=== PATIENT | female | born 1990 | race American Indian/Alaskan Native ===

== ENCOUNTER 2017-12-16 02:34 | Emergency (ER) | payer SELFPAY ==
[2017-12-16 02:45] VITALS: BP 98/78
== END 2017-12-16 10:26 | disposition left against medical advice (07) ==
LOC: ED 02:34
DX: R42 Dizziness and giddiness (principal); Z53.21 Procedure and treatment not carried out due to patient leaving prior to being seen by health care provider
CPT/HCPCS: 87116; 87430

== ENCOUNTER 2017-12-16 09:21 | Emergency (ER) | payer SELFPAY ==
[2017-12-16] MEDS ORDERED: MOTRIN PO ONE (09:57)
--- NOTE | 2017-12-16 10:06 | Emergency Department Report ---
Upper Respiratory HPI - HPI Stated Complaint: DIZZY/ED Time Seen by Provider: 12/16/17 09:52 Duration: 1 Day URI Symptoms: Rhinorrhea: Yes, Sore Throat: Yes, Ear Pain: No, Cough: Yes, Shortness of Breath: No, Sick Contacts: No, Unable to Take Fluids: No, Urine Output Abnormal: No, Listless Behavior: No Other History: This is a 27-year-old female nontoxic, well nourished in appearance, no acute signs of distress presents to the ED with c/o of productive cough, fever, chills, rhinorrhea, nasal congestion x1 day. Patient also stated has shortness of breathe during coughing. Patient describes productive cough as yellow mucus production. Patient denies any sick contact. Patient denies any recent travels, long car, recent hospital stays. Patient denies any calf pain or calf tenderness. Patient denies any chest pain, nausea , vomiting, hemoptysis, numbness, tingling, headache or stiff neck. Patient deneis any allergies or PMH. - Home Meds and Allergies Home Medications: Previous Rx's Medication Instructions Recorded Last Taken Type Azithromycin [Zithromax Z-ALBERTINA] 250 mg PO DAILY #6 tablet 12/16/17 Unknown Rx Ibuprofen [Motrin] 600 mg PO Q8H PRN #20 tablet 12/16/17 Unknown Rx Allergies/Adverse Reactions: Allergies Allergy/AdvReac Type Severity Reaction Status Date / Time No Known Allergies Allergy Unverified 12/16/17 02:45 ED Review of Systems ROS: Stated complaint: DIZZY/ED Other details as noted in HPI Constitutional: chills, fever Eyes: denies: eye pain, eye discharge, vision change ENT: denies: ear pain, throat pain Respiratory: cough. denies: shortness of breath, wheezing Cardiovascular: denies: chest pain, palpitations Endocrine: no symptoms reported Gastrointestinal: denies: abdominal pain, nausea, diarrhea Genitourinary: denies: urgency, dysuria, discharge Musculoskeletal: denies: back pain, joint swelling, arthralgia Skin: denies: rash, lesions Neurological: denies: headache, weakness, paresthesias Psychiatric: denies: anxiety, depression Hematological/Lymphatic: denies: easy bleeding, easy bruising ED Past Medical Hx - Social History Smoking Status: Never Smoker Substance Use Type: None - Medications Home Medications: Home Medications Medication Instructions Recorded Confirmed Last Taken Type Azithromycin [Zithromax Z-ALBERTINA] 250 mg PO DAILY #6 tablet 12/16/17 Unknown Rx Ibuprofen [Motrin] 600 mg PO Q8H PRN #20 tablet 12/16/17 Unknown Rx ED Bronchiolitis Physical Exam - Exam General: Vital signs noted. No distress. Alert and acting appropriately. Neurologic: Alert and oriented, no deficits. Musculoskeletal: Unremarkable. ED Physical Exam - General General appearance: alert, in no apparent distress - Head Head exam: Present: atraumatic, normocephalic - Eye Eye exam: Present: normal appearance Pupils: Present: normal accommodation - ENT ENT exam: Present: mucous membranes moist, TM's normal bilaterally, normal external ear exam - Expanded ENT Exam Expanded Ear exam: Present: normal external inspection Mouth exam: Present: normal external inspection, tongue normal. Absent: drooling, trismus, muffled voice, laceration Teeth exam: Present: normal inspection Throat exam: Positive: tonsillar erythema, other (Uvula midline. No abscess or swelling noted.). Negative: tonsillomegaly, tonsillar exudate, R peritonsillar mass, L peritonsillar mass - Neck Neck exam: Present: normal inspection, full ROM. Absent: tenderness, meningismus, lymphadenopathy - Respiratory Respiratory exam: Present: normal lung sounds bilaterally. Absent: respiratory distress, wheezes, rales, rhonchi, stridor, chest wall tenderness, accessory muscle use, decreased breath sounds, prolonged expiratory - Cardiovascular Cardiovascular Exam: Present: regular rate, normal rhythm, normal heart sounds. Absent: irregular rhythm, systolic murmur, diastolic murmur, rubs, gallop - GI/Abdominal GI/Abdominal exam: Present: soft, normal bowel sounds. Absent: distended, tenderness, guarding, rebound, rigid, diminished bowel sounds - Extremities Exam Extremities exam: Present: normal inspection, full ROM, normal capillary refill. Absent: tenderness - Back Exam Back exam: Present: normal inspection, full ROM. Absent: tenderness, CVA tenderness (R), CVA tenderness (L), muscle spasm, paraspinal tenderness, vertebral tenderness, rash noted - Neurological Exam Neurological exam: Present: alert, oriented X3, normal gait - Psychiatric Psychiatric exam: Present: normal affect, normal mood - Skin Skin exam: Present: warm, dry, intact, normal color. Absent: rash ED Course - Reevaluation(s) Reevaluation #1: 12/16/17 10:04 Patient is speaking in full sentences with no signs of distress noted. ED Medical Decision Making - Medical Decision Making This is a 27-year-old female that presents with bronchitis. Patient is stable and was examined by me. Chest x-ray has been obtained and dictated by radiologist with normal exam. Patient is notified of x-ray results with no questions noted. ANNIE and HEART score 0 pints. Wells criteria for DVT/SVT/PE 0 points. EKG normal sinus rhythm with no significant changes in ST. Due to patient having symptoms of upper respiratory infection and worsening I will treat patient empirically with zpak. Patient was instructed to increase hydration, rest and take Motrin for fever episodes. Patient received motrin in the ED. Vitals stable. Patient is nonfebrile and normal heart rate. Patient was instructed Follow-up with a primary care doctor in 3-5 days or if symptoms worsen and continue return to emergency room as soon as possible. At time time of discharge, the patient does not seem toxic or ill in appearance. No acute signs of distress noted. Patient agrees to discharge treatment plan of care. No further questions noted by the patient. Critical care attestation.: If time is entered above; I have spent that time in minutes in the direct care of this critically ill patient, excluding procedure time. ED Disposition Clinical Impression: Bronchitis Disposition: DC-01 TO HOME OR SELFCARE Is pt being admited?: No Does the pt Need Aspirin: No Condition: Stable Instructions: Acute Bronchitis (ED) Additional Instructions: Follow-up with a primary care doctor in 3-5 days or if symptoms worsen and continue return to emergency room as soon as possible. Take Motrin for fever as prescribed and increase hydration and rest Prescriptions: Azithromycin [Zithromax Z-ALBERTINA] 250 mg PO DAILY #6 tablet Ibuprofen [Motrin] 600 mg PO Q8H PRN #20 tablet PRN Reason: Fever >101 Referrals: PRIMARY MD BETSY [Primary Care Provider] - 3-5 Days NIC CHI MD [Staff Physician] - 3-[address] [facility] [Outside] - 3-5 Days [facility] [Outside] - 3-5 Days Forms: Work/School Release Form(ED)
[2017-12-16 10:25] VITALS: BP 98/78
--- NOTE | 2017-12-16 10:47 | XRay Report ---
FINAL REPORT EXAM: XR CHEST ROUTINE 2V HISTORY: cough TECHNIQUE: Chest, two views PRIORS: None. FINDINGS: The heart size is normal. Mediastinal contours are normal. Pulmonary vasculature is not congested. The lungs are clear. There are no pleural effusion seen. There is no evidence of pneumothorax. IMPRESSION: There is no acute abnormality identified.
== END 2017-12-16 11:29 | disposition home or self-care (01) ==
LOC: ED 09:21
DX: J40 Bronchitis, not specified as acute or chronic (principal)
CPT/HCPCS: 71046; 93005; 93010; 99283

== ENCOUNTER 2018-03-31 10:24 | Emergency (ER) | payer SELFPAY ==
[2018-03-31] MEDS ORDERED: TORADOL IM ONE (11:15)
[2018-03-31] MEDS ORDERED: TORADOL ONE (11:22)
--- NOTE | 2018-03-31 11:43 | XRay Report ---
FINAL REPORT EXAM: XR SHOULDER 2+V RT HISTORY: pain after injury TECHNIQUE: Three views right shoulder. PRIORS: None currently available. FINDINGS: There is no acute fracture. There is no evidence for healing fracture. There is no acute dislocation. Joints in anatomical position. No significant arthrosis. There is no cortical destruction to suggest osteomyelitis. There are no suspicious osseous lesions. There are no radiopaque foreign objects. IMPRESSION: No acute osseous findings.
[2018-03-31 11:57] VITALS: BP 132/80
--- NOTE | 2018-03-31 12:24 | Emergency Department Report ---
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 Patient states her right arm was pulled dramatically and now she has pain with middle of the right shoulder. Patient is unable to lift her arm at this time. Patient has generalized discomfort with palpation as well and she states her pain is 8 out of 10 in severity. Agent denies any other trauma at this time. Severity scale (0 -10): 7 - Related Data Previous Rx's Medication Instructions Recorded Last Taken Type Azithromycin [Zithromax Z-ALBERTINA] 250 mg PO DAILY #6 tablet 12/16/17 Unknown Rx Ibuprofen [Motrin] 600 mg PO Q8H PRN #20 tablet 12/16/17 Unknown Rx HYDROcodone/APAP 5-325 [[place] 1 each PO Q6HR PRN #15 tablet 03/31/18 Unknown Rx 5/325] Ibuprofen [Motrin] 800 mg PO Q8HR PRN #20 tablet 03/31/18 Unknown Rx methOCARBAMOL [Robaxin TAB] 500 mg PO Q6H PRN #15 tablet 03/31/18 Unknown Rx Allergies Allergy/AdvReac Type Severity Reaction Status Date / Time No Known Allergies Allergy Unverified 12/16/17 02:45 ED Review of Systems ROS: Stated complaint: RIGHT SHOULDER/CHEST PAIN Other details as noted in HPI Comment: All other systems reviewed and negative ED Past Medical Hx - Past Medical History Previous Medical History?: No - Surgical History Past Surgical History?: No - Social History Smoking Status: Never Smoker Substance Use Type: None - Medications Home Medications: Home Medications Medication Instructions Recorded Confirmed Last Taken Type Azithromycin [Zithromax Z-ALBERTINA] 250 mg PO DAILY #6 tablet 12/16/17 Unknown Rx Ibuprofen [Motrin] 600 mg PO Q8H PRN #20 tablet 12/16/17 Unknown Rx HYDROcodone/APAP 5-325 [[place] 1 each PO Q6HR PRN #15 tablet 03/31/18 Unknown Rx 5/325] Ibuprofen [Motrin] 800 mg PO Q8HR PRN #20 tablet 03/31/18 Unknown Rx methOCARBAMOL [Robaxin TAB] 500 mg PO Q6H PRN #15 tablet 03/31/18 Unknown Rx ED Physical Exam - General Limitations: No Limitations General appearance: alert, in no apparent distress - Head Head exam: Present: atraumatic, normocephalic - Eye Eye exam: Present: normal appearance - ENT ENT exam: Present: mucous membranes moist - Neck Neck exam: Present: normal inspection - Respiratory Respiratory exam: Present: normal lung sounds bilaterally. Absent: respiratory distress - Cardiovascular Cardiovascular Exam: Present: regular rate, normal rhythm. Absent: systolic murmur, diastolic murmur, rubs, gallop - GI/Abdominal GI/Abdominal exam: Present: soft, normal bowel sounds - Extremities Exam Extremities exam: Present: normal inspection, tenderness. Absent: full ROM, joint swelling (patient has pain with passive movements of the right shoulder. Patient has tenderness to the posterior and anterior shoulder. There is no deltoid deformity.) - Back Exam Back exam: Present: normal inspection - Neurological Exam Neurological exam: Present: alert, oriented X3 - Psychiatric Psychiatric exam: Present: normal affect, normal mood - Skin Skin exam: Present: warm, dry, intact, normal color. Absent: rash ED Course Vital Signs 03/31/18 03/31/18 10:45 11:55 Temperature 98.5 F 99.0 F Pulse Rate 79 64 Respiratory 18 16 Rate Blood Pressure 114/43 Blood Pressure 132/80 [Right] O2 Sat by Pulse 100 100 Oximetry ED Medical Decision Making - Radiology Data Radiology results: report reviewed (x-ray of the right shoulder shows no acute process.) - Medical Decision Making Patient given if instructions on aggressive ice therapy. Patient also will be given orthopedic follow-up. Critical care attestation.: If time is entered above; I have spent that time in minutes in the direct care of this critically ill patient, excluding procedure time. ED Disposition Clinical Impression: Rotator cuff injury Qualifiers: Encounter type: initial encounter Laterality: right Qualified Code(s): S46.001A - Unspecified injury of muscle(s) and tendon(s) of the rotator cuff of right shoulder, initial encounter Disposition: TO HOME OR SELFCARE Is pt being admited?: No Does the pt Need Aspirin: No Condition: Stable Instructions: Shoulder Sprain (ED), Rotator Cuff Injury (ED), RICE Therapy (ED) Referrals: CLIVE ZHOU MD [Staff Physician] - 3-5 Days Forms: Work/School Release Form(ED) Time of Disposition: 12:23
== END 2018-03-31 12:33 | disposition home or self-care (01) ==
LOC: ED 10:24
DX: S46.001A Unspecified injury of muscle(s) and tendon(s) of the rotator cuff of right shoulder, initial encounter (principal); X50.9XXA Other and unspecified overexertion or strenuous movements or postures, initial encounter; Y93.89 Activity, other specified; Y92.89 Other specified places as the place of occurrence of the external cause; Y99.8 Other external cause status
CPT/HCPCS: J1885

== ENCOUNTER 2019-01-28 09:55 | Emergency (ER) | payer OTHER ==
[2019-01-28] MEDS ORDERED: SODIUM CHLORIDE 0.9% 1000 ML 1,000 ML IV ONE (12:41)
--- NOTE | 2019-01-28 12:44 | Emergency Department Report ---
ED General Adult HPI - General Chief complaint: Dizziness Stated complaint: HEAD PAIN/EYE PRESSURE/DIZZY Time Seen by Provider: 01/28/19 11:52 Source: patient Mode of arrival: Ambulatory Limitations: No Limitations - History of Present Illness Initial comments: 28-year-old -Turkmen female patient without significant past medical history presents with complaints of intermittent headaches and dizziness, fever, body aches, cough and congestion for the past 3 days. She states 3 others in her house have the flu. She denies smoking or history of asthma. He states the cough is productive of yellow sputum. She denies trying any [id number] medications for her symptoms. She denies any current dizziness. She states temp at home of 101 yesterday. He denies any vomiting or diarrhea, but admits to nausea Worsens with: none Associated Symptoms: cough, fever/chills, headaches, loss of appetite, malaise. denies: diaphoresis Treatments Prior to Arrival: none - Related Data Previous Rx's Medication Instructions Recorded Last Taken Type Azithromycin [Zithromax Z-ALBERTINA] 250 mg PO DAILY #6 tablet 12/16/17 Unknown Rx Ibuprofen [Motrin] 600 mg PO Q8H PRN #20 tablet 12/16/17 Unknown Rx HYDROcodone/APAP 5-325 [[place] 1 each PO Q6HR PRN #15 tablet 03/31/18 Unknown Rx 5/325] Ibuprofen [Motrin] 800 mg PO Q8HR PRN #20 tablet 03/31/18 Unknown Rx methOCARBAMOL [Robaxin TAB] 500 mg PO Q6H PRN #15 tablet 03/31/18 Unknown Rx Benzonatate 200 mg PO TID PRN #21 capsule 01/28/19 Unknown Rx Allergies Allergy/AdvReac Type Severity Reaction Status Date / Time No Known Allergies Allergy Unverified 12/16/17 02:45 ED Review of Systems ROS: Stated complaint: HEAD PAIN/EYE PRESSURE/DIZZY Other details as noted in HPI Constitutional: see HPI ENT: denies: throat pain Respiratory: cough. denies: shortness of breath Cardiovascular: denies: chest pain, palpitations, edema, syncope Endocrine: no symptoms reported Gastrointestinal: nausea. denies: abdominal pain, vomiting ED Past Medical Hx - Past Medical History Previous Medical History?: No - Surgical History Past Surgical History?: No - Social History Smoking Status: Never Smoker Substance Use Type: None - Medications Home Medications: Home Medications Medication Instructions Recorded Confirmed Last Taken Type Azithromycin [Zithromax Z-ALBERTINA] 250 mg PO DAILY #6 tablet 12/16/17 Unknown Rx Ibuprofen [Motrin] 600 mg PO Q8H PRN #20 tablet 12/16/17 Unknown Rx HYDROcodone/APAP 5-325 [[place] 1 each PO Q6HR PRN #15 tablet 03/31/18 Unknown Rx 5/325] Ibuprofen [Motrin] 800 mg PO Q8HR PRN #20 tablet 03/31/18 Unknown Rx methOCARBAMOL [Robaxin TAB] 500 mg PO Q6H PRN #15 tablet 03/31/18 Unknown Rx Benzonatate 200 mg PO TID PRN #21 capsule 01/28/19 Unknown Rx ED Physical Exam - General Limitations: No Limitations General appearance: alert, in no apparent distress - Head Head exam: Present: atraumatic, normocephalic - Eye Eye exam: Present: normal appearance - ENT ENT exam: Present: mucous membranes moist - Neck Neck exam: Present: normal inspection - Respiratory Respiratory exam: Present: normal lung sounds bilaterally. Absent: respiratory distress, wheezes, rales, rhonchi, stridor, chest wall tenderness, accessory muscle use, decreased breath sounds, prolonged expiratory - Cardiovascular Cardiovascular Exam: Present: normal rhythm, tachycardia. Absent: systolic murmur, diastolic murmur, rubs, gallop - GI/Abdominal GI/Abdominal exam: Present: soft, normal bowel sounds. Absent: distended, tenderness - Extremities Exam Extremities exam: Absent: pedal edema, calf tenderness - Neurological Exam Neurological exam: Present: alert, oriented X3 - Psychiatric Psychiatric exam: Present: normal affect, normal mood - Skin Skin exam: Present: warm, dry, intact, normal color. Absent: rash ED Course Vital Signs 01/28/19 01/28/19 10:01 13:54 Temperature 98.6 F Pulse Rate 119 H 91 H Respiratory 18 18 Rate Blood Pressure 123/86 138/68 [Right] O2 Sat by Pulse 98 96 Oximetry ED Medical Decision Making - Medical Decision Making 28-year-old patient here with flu symptoms. She admits to exposure to flu from 3 other people in her home. She states productive cough with intermittent fever. 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 Initial heart rate at 119. Fluid bolus given and heart rate improved to 91. Pulse ox is at 98%. Discussed symptoms are likely due to flu, however given her productive cough with elevated heart rate patient to monitor for worsening symptoms or signs of pneumonia which we discussed in detail. Patient to discharge home with primary care follow-up in 3-5 days. Strict return precautions were discussed in great detail with patient who states understanding Critical care attestation.: If time is entered above; I have spent that time in minutes in the direct care of this critically ill patient, excluding procedure time. ED Disposition Clinical Impression: Viral syndrome Disposition: DC-01 TO HOME OR SELFCARE Is pt being admited?: No Condition: Stable Instructions: Influenza (ED) Prescriptions: Benzonatate 200 mg PO TID PRN #21 capsule PRN Reason: Cough Referrals: OPAL PHAM MD [Primary Care Provider] - 3-5 Days
[2019-01-28 13:54] VITALS: BP 138/68
[2019-01-28 14:14] LABS: HCG Qualitative,Urine Negative (Negative)
== END 2019-01-28 14:10 | disposition home or self-care (01) ==
LOC: ED 09:55
DX: B34.9 Viral infection, unspecified (principal); R42 Dizziness and giddiness; Z79.1 Long term (current) use of non-steroidal anti-inflammatories (NSAID); Z79.899 Other long term (current) drug therapy
CPT/HCPCS: 81025; 96360; 99283; J7030